=== PATIENT | male | born 1965 | race Caucasian/White ===

== ENCOUNTER 2016-05-04 07:07 | Emergency (ER) | payer OTHER ==
[2016-05-04 07:15] VITALS: BP 145/90; PULSE 82; TEMP 98.2; BMI 27.1
[2016-05-04] MEDS ORDERED: DIPHTH,PERTUSS(ACELL),TET VAC 0.5 ML VIAL IM ONE (07:30)
--- NOTE | 2016-05-04 07:30 | PDOC ---
History of Present Illness - General Chief Complaint: Laceration Stated Complaint: LACERATION RT FOREHEAD Time Seen by Provider: 05/04/16 07:30 History Source: Patient Exam Limitations: No Limitations - History of Present Illness Initial Comments: 50 yo M no PMH presents s/p slip and fall on ice, hitting his forehead on the curb as he was running to catch a train. No LOC. Denies vision changes, weakness , numbness. Sustained a laceration to the R forehead, close to the hairline. No other injuries. C/o mild localized pain. Cannot recall his last tetanus booster. Past History - Past Medical History Allergies/Adverse Reactions: Allergies Allergy/AdvReac Type Severity Reaction Status Date / Time No Known Allergies Allergy Verified 05/04/16 07:08 Home Medications: Ambulatory Orders Wellbutrin - 05/04/16 Psychiatric Problems: Yes - Immunization History Td Vaccination: No TDAP Vaccination: No Immunization Up to Date: No - Psycho/Social/Smoking Cessation Hx Anxiety: No Suicidal Ideation: No Smoking History: Never smoked Have you smoked in the past 12 months: No Information on smoking cessation initiated: No Hx Alcohol Use: No Drug/Substance Use Hx: No Substance Use Type: None Review of Systems - Review of Systems Able to Perform ROS?: Yes Comments:: GENERAL/CONSTITUTIONAL: No fever or chills. No weakness. HEAD, EYES, EARS, NOSE AND THROAT: No change in vision. No ear pain or discharge. No sore throat. MUSCULOSKELETAL: No joint or muscle swelling or pain. No neck or back pain. SKIN: No rash NEUROLOGIC: No headache, vertigo, loss of consciousness, or change in strength/ sensation. HEMATOLOGIC/LYMPHATIC: No anemia, easy bleeding, or history of blood clots. *Physical Exam - Vital Signs Last Vital Signs Temp Pulse Resp BP Pulse Ox 98.2 F 82 20 145/90 100 05/04/16 07:07 05/04/16 07:07 05/04/16 07:07 05/04/16 07:07 05/04/16 07:07 - Physical Exam Comments: GENERAL: Awake, alert, and fully oriented, in no acute distress HEAD: +Laceration to R forehead as described below. +Mild swelling to the R forehead. No bony tenderness. EXTREMITIES: Normal range of motion, no edema. No clubbing or cyanosis. No cords, erythema, or tenderness NEUROLOGICAL: Cranial nerves II through XII grossly intact. Normal speech, normal gait SKIN: Warm, Dry, normal turgor, no rashes. +2 cm irregular laceration to R lateral forehead, just shy of the hairline. Procedures - Laceration/Wound Repair Right Lateral Frontal Wound Length: to 2.5 cm Wound Explored: clean, no foreign body present Wound's Depth, Shape: superficial, irregular, contused tissue Anesthesia: 1% Lidocaine Amount of Anesthetic (ccs): 1 Wound Repaired With: Sutures Suture Size/Type: 5:0 (polysorb) Number of Sutures: 4 Layer Closure: No Sterile Dressing Applied: Yes *DC/Admit/Observation/Transfer Diagnosis at time of Disposition: Laceration of forehead Qualifiers: Encounter type: initial encounter Qualified Code(s): S01.81XA - Laceration without foreign body of other part of head, initial encounter - Discharge Dispostion Disposition: HOME Condition at time of disposition: Improved Admit: No - Patient Instructions Printed Discharge Instructions: DI for Laceration Repair, How to Care for Absorbable Sutures
== END 2016-05-04 07:51 | disposition home or self-care (01) ==
LOC: FER 07:07
PROC: 3E0234Z Introduction of Serum, Toxoid and Vaccine into Muscle, Percutaneous Approach (ICD-10-PCS; principal; 2016-05-04)
PROC: 0HQ1XZZ Repair Face Skin, External Approach (ICD-10-PCS; 2016-05-04)
DX: S01.81XA Laceration without foreign body of other part of head, initial encounter (principal); W00.9XXA Unspecified fall due to ice and snow, initial encounter; Y93.02 Activity, running; Y92.522 Railway station as the place of occurrence of the external cause
CPT/HCPCS: 99283-25